=== PATIENT | male | born 1995 | race Caucasian/White ===

== ENCOUNTER 2017-05-16 11:17 | Emergency (ER) | payer MEDICAID ==
--- NOTE | 2017-05-16 12:14 | ED Physician Chart ---
ED Chief Complaint/HPI - Patient Information Date Seen:: 05/16/17 Time Seen:: 11:43 Chief Complaint:: R forehead laceration History of Present Illness:: Brought in by private auto because of the above reason. Pt is [place]vian speaking. Interpretation is provided by staff member Lupe. Pt walked and impacted against a light pole by accident at about 0900 today and sustained laceration in R forehead. No LOC. No other bodily injury or pain. No headache. No N/V/D. No visual changes in terms of blurry vision or diplopia. No weakness or numbness. No ataxia. Last tetanus immunization is unknown. Allergies:: NKA Vitals:: Vital Signs - 8 hr 05/16/17 11:20 Temp 98.4 F HR 68 RR 16 BP 161/70 O2 Sat % 100 Historian:: Patient Family MD/PCP:: Unknown LMP:: N/A Review:: Nurse's Note Reviewed ED Review of Systems - Review of Systems General/Constitutional: No fever, No chills, No weight loss, No weakness, No diaphoresis, No edema Skin: No bruising, Other (R forehead laceration, see HPI.) Head: No headache, No light-headedness Eyes: Acuity change, No loss of vision, No pain, No diplopia ENT: No earache, No nasal drainage, No sore throat Neck: No neck pain, No swelling, No stiffness Cardio Vascular: No chest pain, No palpitations, No edema Pulmonary: No SOB, No cough, No wheezing GI: No nausea, No vomiting, No diarrhea, No pain G/U: No dysuria, No frequency, No hematuria Musculoskeletal: No bone or joint pain, No back pain, No muscle pain Endocrine: No polyuria, No polydipsia Psychiatric: No prior psych history Hematopoietic: No bruising, No lymphadenopathy Allergic/Immuno: No urticaria, No angioedema Neurological: No syncope, No focal symptoms, No weakness, No paresthesia, No headache, No seizure, No dizziness, No confusion, No vertigo ED Past Medical History - Past Medical History Past Medical History: No significant medical hx Family History: None Social History: Non Smoker, No Alcohol, No Drug Use, Single, Employed, Other ( lives with a roommate.) Employment:: [employer] Surgical History: None Psychiatricy History: None Medication: None Family Medical History - Family Member Mother History Unknown: Yes ED Physical Exam - Physical Examination General/Constitutional: Awake, Well-developed, well-nourished, Alert, No distress, GCS 15, Non-toxic appearing, Ambulatory Other Gen/Cons comments:: Breathes comfortably, speaks clearly, and interacts normally. Other Head comments:: There is an X-shaped superficial laceration noticed at medial aspect of R forehead above his R eye with each arm of the X- shaped laceration measured approx. 1 cm. One of two arms naturally approximates as it is very superficial. There is mild swelling. No bony tapering, active bleeding, or ecchymosis. Eyes: Lids, conjuctiva normal, PERRL, EOMI Other Eyes comments:: Fundi: flat disks. Skin: No rash, Well hydrated, No lymphadenopathy ENMT: External ears, nose nl, TM canals nl (No hemoptympanus), Nasal exam nl, Lips, teeth, gums nl, Oropharynx nl Neck: Nontender, Full ROM w/o pain, No nuchal rigidity, No mass, No stridor Respiratory: Nl effort/Exclusion, Clear to Auscultation, No Wheeze/Rhonchi/Rales Cardio Vascular: RRR, No murmur, gallop, rubs GI: No tenderness/rebounding/guarding, No organomegaly, Normal BS's, Nondistended Other GI comments:: Abdomen is soft. Extremities: No tenderness or effusion, Full ROM, normal strength in all extremities, No edema, Normal digits & nails Neuro/Psych: Alert/oriented (oriented x 3), DTR's symmetric, Normal sensory exam , Normal motor strength, Judgement/insight normal, Mood normal, Normal gait, No focal deficits Other Neuro/Psych comments:: CN II to XII are grossly intact. Cerebellar exam (F to N, JOSE): normal. ED Septic Shock - . Is Septic Shock (SBP<90, OR Lactate>4 mmol\L) present?: No - <6hrs of presentation: Vital Signs: Vital Signs - 8 hr 05/16/17 11:20 Temp 98.4 F HR 68 RR 16 BP 161/70 O2 Sat % 100 ED Reassessment (Disposition) - Reassessment Reassessment:: 1330 Laceration repair: Pt was prepped in usual sterile manner. Betadine was used to cleanse wound. Wound was then well irrigated with sterile normal saline. Wound was well approximated with Dermabond. Pt tolerated the procedure without immediate complication. 1355 Pt remains stable. No SMART, or N/V. Pt can ambulate without assistance without difficulty. Pt requests to go home now and does not want further observation/management in hospital. Aftercare instructions have been given. Interpretation is provided by my staff member Lupe. Reassessment Condition:: Improved - Diagnosis Diagnosis:: Superficial R frontal laceration, s/p repair with Dermabond. Stable. - Aftercare/Follow up Instructions Aftercare/Follow-Up Instructions:: Refer to Discharge Instructions Notes:: Keep R forehead wound clean and dry. Wound care instructions given. May take Tylenol 500 mg tab one tab po q6h prn pain. Head Injury Instructions given. F/U with Dr. Sears or PCP of pt's choice in one day for recheck. Return to ER immediately if condition worsens or if any further questions/problems. Medication Prescribed:: None - Patient Disposition Discharge/Transfer:: Home Time:: 14:00 Condition at Disposition:: Stable, Improved ED Discharge Plan - Patient Disposition Admit/Discharge/Transfer: PT DISCHARGED HOME Condition at Disposition: Stable Instructions: Facial Laceration, Laceration Care, Adult Additional Instructions: PLEASE CALL PRIMARY MEDICAL DOCTOR IN THE MORNING FOR A FOLLOW UP APPOINTMENT AND WOUND CHECK.
== END 2017-05-16 14:32 | disposition home or self-care (01) ==
LOC: ER 11:17
DX: S01.81XA Laceration without foreign body of other part of head, initial encounter (principal); W22.8XXA Striking against or struck by other objects, initial encounter; Y93.89 Activity, other specified; Y92.89 Other specified places as the place of occurrence of the external cause; Y99.8 Other external cause status
CPT/HCPCS: 12011; Z7502; Z7610